=== PATIENT | female | born 2000 | race Caucasian/White ===

== ENCOUNTER 2021-06-02 11:57 | Emergency (ER) | payer BC ==
[~2021-06-02] VITALS: Ht 170.2 cm; Wt 65.9 kg
[2021-06-02 12:19] VITALS: TEMP 97.9
[2021-06-02 13:43] VITALS: BP 139/87; PULSE 95
== END 2021-06-02 13:43 | disposition home or self-care (01) ==
LOC: COL.ER 11:57
DX: S93.401A Sprain of unspecified ligament of right ankle, initial encounter (principal); W19.XXXA Unspecified fall, initial encounter